=== PATIENT | male | born 1975 | race Caucasian/White ===

== ENCOUNTER 2016-10-11 09:37 | Emergency (ER) | payer BC ==
[2016-10-11 09:50] VITALS: BP 147/92
[2016-10-11] MEDS ORDERED: Lidocaine 1% with EPINEPHrine 1:100,000 20 ML MDV INJECT ONE (09:54)
--- NOTE | 2016-10-11 10:14 | EDM.PDOC ---
ED HPI GENERAL MEDICAL PROBLEM - General Chief Complaint: Cardiovascular Problem Stated Complaint: VEIN ON RT ANKLE BLEEDING Time Seen by Provider: 10/11/16 09:55 Source of Information: Reports: Patient, Old Records History Limitations: Reports: No Limitations - History of Present Illness INITIAL COMMENTS - FREE TEXT/NARRATIVE: 41 yo male presents for a bleeding varicose vein. Has had this problem before. Onset: Today Onset Date: 10/11/16 Onset Time: 09:00 Duration: Minutes: Location: Reports: Lower Extremity, Right Quality: Reports: Other Severity: Moderate Improves with: Reports: Other (Elevation) Worsens with: Reports: Other (putting foot down) Context: Reports: Other (hx of the same.) Associated Symptoms: Reports: No Other Symptoms Treatments BRICK PAVER: Reports: Dressing(s), Other (see below) (pressure dressing) - Related Data Allergies Allergy/AdvReac Type Severity Reaction Status Date / Time sulfamethoxazole Allergy Hives Verified 10/11/16 09:46 [From Bactrim] trimethoprim [From Bactrim] Allergy Hives Verified 10/11/16 09:46 Home Meds: Home Meds Losartan/Hydrochlorothiazide [Losartan-HCTZ 100-12.5 MG] 1 tab PO DAILY [History] Past Medical History Cardiovascular History: Reports: Hypertension, Other (See Below) Social & Family History - Family History Family Medical History: Noncontributory - Tobacco Use Smoking Status *Q: Current Every Day Smoker Years of Tobacco use: 20 Packs/Tins Daily: 0.5 - Caffeine Use Caffeine Use: Reports: None - Recreational Drug Use Recreational Drug Use: No ED ROS GENERAL - Review of Systems Review Of Systems: See Below Constitutional: Reports: No Symptoms Skin: Reports: Wound (Small wound to R lateral ankle at site of a small varicosity. Bleeding controlled while leg is elevated.) Neurological: Reports: No Symptoms ED EXAM, GENERAL - Physical Exam Exam: See Below Exam Limited By: No Limitations General Appearance: Alert, WD/WN, No Apparent Distress Extremities: Normal Inspection, Normal Range of Motion, Non-Tender, Other ( multiple varicosities of varying sizes on both LE's below the knees.) Neurological: Alert, Oriented, Normal Cognition Psychiatric: Normal Affect, Normal Mood Skin Exam: Warm, Dry, Intact, Normal Color, No Rash, Wound/Incision (2 mm open wound to the R lateral ankle over a varicose vein. Dried blood present. No active bleeding with ankle elevated. ) Lymphatic: No Adenopathy Course - Vital Signs Text/Narrative:: skin cleaned with alcohol. Skin anesth over wound with 1.5 ml of 1% lidocaine. One purse-string suture placed with 4-0 Prolene over bleeding site. A dressing was then applied. Last Recorded V/S: Last Vital Signs Temp 36.4 C 10/11/16 09:46 Pulse 93 10/11/16 09:46 Resp 22 H 10/11/16 09:46 BP 147/92 H 10/11/16 09:46 Pulse Ox 100 10/11/16 09:46 - Orders/Labs/Meds Meds: Medications Discontinued Medications Generic Name Dose Route Start Last Admin Trade Name Griffin PRN Reason Stop Dose Admin Lidocaine/Epinephrine 5 ml 10/11/16 09:54 Xylocaine 1% With Epinephrine 1:100,000 INJECT 10/11/16 09:55 ONETIME ONE Departure - Departure Time of Disposition: 10:27 Disposition: Home, Self-Care 01 Condition: good Clinical Impression: Bleeding from varicose vein Qualifiers: Laterality: right Qualified Code(s): I83.891 - Varicose veins of right lower extremities with other complications Forms: ED Department Discharge Care Plan Goals: Keep pressure dressing on until bedtime tonight. Clean wound twice daily with 1/ 2 water and 1/2 peroxide. Dry. Apply antibiotic ointment and a new dressing. F/ U in the clinic for suture removal in about 6 days, call for an appt. Acetaminophen as needed for pain relief. Keep your leg elevated as much as possible. Put on support stockings before getting out of bed in the morning and wear them daily until bedtime. Avoid salty foods/added salt.
== END 2016-10-11 10:30 | disposition home or self-care (01) ==
LOC: FB.ED 09:37
DX: I83.891 Varicose veins of right lower extremity with other complications (principal); I10 Essential (primary) hypertension; F17.210 Nicotine dependence, cigarettes, uncomplicated; Z88.2 Allergy status to sulfonamides; Z88.8 Allergy status to other drugs, medicaments and biological substances; Z79.899 Other long term (current) drug therapy
CPT/HCPCS: 12001; 99282